=== PATIENT | male | born 1935 | race Caucasian/White ===

== ENCOUNTER 2017-01-07 19:15 | Emergency (ER) | payer MEDICARE, BC ==
[2017-01-07 18:16] LABS: BASOPHILS 0.6 %; BASOPHILS ABSOLUTE 0.05 10/3/uL (0.0-0.16); EOSINOPHILS 7.6 %; HEMATOCRIT 42.9 % (40.0-51.0); HEMOGLOBIN 15.3 g/dL (13.6-17.8); IMMATURE GRANULOCYTES 0.5 %; IMMATURE GRANULOCYTES ABSOLUTE 0.04 10/3/uL (0.0-0.11); LYMPHOCYTES ABSOLUTE 1.58 10/3/uL (0.67-4.30); MANUAL DIFF NO %; MEAN CORPUS HGB CONC 35.7 g/dL (32.0-36.0); MEAN CORPUSCULAR HEMOGLOB 30.8 pg (26.0-34.0); MEAN CORPUSCULAR VOLUME 86.5 fL (80-100); MEAN PLATELET VOLUME 8.8 fL (9.2-13.0); MONOCYTES 10.4 %; MONOCYTES ABSOLUTE 0.82 10/3/uL (0.21-1.20); NEUTROPHILS 60.9 %; NEUTROPHILS ABSOLUTE 4.81 10/3/uL (2.02-8.40); PLATELET COUNT 256 10/3/uL (150-400); RBC DISTRIBUTION WIDTH 14.8 % (12.0-16.0); RED CELL COUNT 4.96 10/6/uL (4.7-6.1); WHITE BLOOD CELLS 7.9 10/3/uL (4.5-10.5)
[2017-01-07 18:31] LABS: ALBUMIN 3.9 G/DL (3.5-5.0); CALCIUM, SERUM 8.7 MG/DL (8.5-10.4); CHLORIDE, SERUM 94 MMOL/L (96-112); CO2 (CARBON DIOXIDE) 25 MMOL/L (24-34); CREATININE 0.95 MG/DL (0.70-1.30); GFR AFRICAN AMERICAN 86 ML/MIN (>=60); GFR NON AFRICAN AMERICAN 74 ML/MIN (>=60); POTASSIUM, SERUM 3.9 MMOL/L (3.5-5.3); SGOT(AST) 16 U/L (5-40); SGPT(ALT) 20 U/L (5-65); SODIUM, SERUM 129 MMOL/L (135-148); TOTAL PROTEIN 7.6 G/DL (6.0-8.5)
[2017-01-07 18:32] LABS: A/G RATIO 1.1 (0.7-1.9); ALKALINE PHOSPHATASE 67 U/L (45-117); BUN (BLOOD UREA NITROGEN) 10 MG/DL (6-23); GLOBULIN 3.7 G/DL (2.5-4.1); GLUCOSE, SERUM 101 MG/DL (60-99)
[~2017-01-07 19:15] MED LIST: ACCUNEB INH; ADVAIR100 INH; ALLEGRA180 PO; ALTACE10 MG PO; ASA5GR PO; DYAZIDE1 CAP PO; FISH OIL1200 MG PO; KENALOG-1010 MG/ML IJ; LEVOTHYROXIN25 MCG; LEVOTHYROXIN50 MCG PO; LEVSINTAB PO; LOP50 PO; MAX25 PO; MOBIC7.5 PO; MULTIVITAMI1 PO; NORV5 PO; POTASSIUM95 MG PO; PROSCAR5 PO; SAW PALMETTO PO; VITAMIN B-121000 MC1 SL; [UNRECOGNIZED DRUG - REMARK]
== END 2017-01-07 20:43 | disposition home or self-care (01) ==
LOC: ER 19:15
PROVIDERS: Emergency Medicine
DX: J45.901 Unspecified asthma with (acute) exacerbation (principal); I10 Essential (primary) hypertension; Z85.21 Personal history of malignant neoplasm of larynx; Z79.82 Long term (current) use of aspirin; Z79.899 Other long term (current) drug therapy
CPT/HCPCS: 71020; 80053; 85025; 93005; 94640; 96374; 99285; A9270-GY; J2930

== ENCOUNTER 2017-01-15 17:19 | Emergency (ER) | payer MEDICARE, BC ==
[2017-01-15 17:59] LABS: BASOPHILS 0.5 %; BASOPHILS ABSOLUTE 0.05 10/3/uL (0.0-0.16); EOSINOPHILS 8.7 %; EOSINOPHILS ABSOLUTE 0.86 10/3/uL (0.0-0.53); ER CBC TAT 0 Hrs 10 Mins; HEMOGLOBIN 15.6 g/dL (13.6-17.8); IMMATURE GRANULOCYTES 1.7 %; IMMATURE GRANULOCYTES ABSOLUTE 0.17 10/3/uL (0.0-0.11); LYMPHOCYTES 20.1 %; MEAN CORPUS HGB CONC 34.7 g/dL (32.0-36.0); MEAN CORPUSCULAR HEMOGLOB 30.6 pg (26.0-34.0); MEAN CORPUSCULAR VOLUME 88.4 fL (80-100); MEAN PLATELET VOLUME 8.7 fL (9.2-13.0); MONOCYTES ABSOLUTE 1.09 10/3/uL (0.21-1.20); NEUTROPHILS ABSOLUTE 5.77 10/3/uL (2.02-8.40); PLATELET COUNT 264 10/3/uL (150-400); RED CELL COUNT 5.09 10/6/uL (4.7-6.1); WHITE BLOOD CELLS 9.9 10/3/uL (4.5-10.5)
[2017-01-15 18:00] LABS: MANUAL DIFF NO %
[2017-01-15 18:07] LABS: INTERNATIONAL NORMAL RATI 1.1 UNITS (-); PARTIAL THROMBO TIME 30.4 SEC (22.5-37.2); PROTIME (NOT ORD) 13.8 SEC (12.0-14.5)
[2017-01-15 18:16] LABS: CALCIUM, SERUM 8.8 MG/DL (8.5-10.4); CHEST PAIN PROFILE TAT 0 Hrs 27 Mins; CHLORIDE, SERUM 95 MMOL/L (96-112); GFR AFRICAN AMERICAN 65 ML/MIN (>=60); GFR NON AFRICAN AMERICAN 56 ML/MIN (>=60); GLUCOSE, SERUM 101 MG/DL (60-99); POTASSIUM, SERUM 4.1 MMOL/L (3.5-5.3); SODIUM, SERUM 131 MMOL/L (135-148); TROPONIN I <0.02 NG/ML (<0.05)
[2017-01-15 18:18] LABS: BUN (BLOOD UREA NITROGEN) 16 MG/DL (6-23); CO2 (CARBON DIOXIDE) 32 MMOL/L (24-34)
== END 2017-01-16 01:08 | disposition home or self-care (01) ==
LOC: ER 17:19
PROVIDERS: Emergency Medicine
DX: J45.901 Unspecified asthma with (acute) exacerbation (principal); I10 Essential (primary) hypertension; Z85.89 Personal history of malignant neoplasm of other organs and systems; Z79.82 Long term (current) use of aspirin; Z79.899 Other long term (current) drug therapy
CPT/HCPCS: 71020; 80048; 83735; 84484; 85025; 85610; 85730; 94640; 99285

== ENCOUNTER 2017-03-19 16:44 | Inpatient (IN) | payer MEDICARE, BC ==
--- NOTE | ~2017-03-19 | DS ---
Discharge Summary [address] [place]. [address] NAME: EMILEE CARRION : 34 STATUS : DIS IN PAT#: [id number] AGE: 81 ADM/REG DATE : 03/20/17 MR#: [id number] REPORT SERV DATE: 03/23/17 DICTATED BY: JR. RODRIGUEZ WILLIAM JOHN DATE: 03/22/17 REPORT STATUS : Draft TRANSCRIBED BY: MODConnor DATE: 03/22/17 ADMISSION DATE: 03/20/2017 DISCHARGE DATE: 03/22/2017 DISCHARGE DIAGNOSES: Include: 1. Severe recurrent asthma with exacerbation. 2. Acute hypoxic respiratory failure. 3. Pulmonary nodules of the right upper lobe with necrotic nodes. 4. Hyponatremia. 5. Essential hypertension. 6. Irritable bowel syndrome with predominant diarrhea. 7. History of vocal cord carcinoma in situ, status post resection. OPERATIONS, PROCEDURES, AND TREATMENTS: 1. Include blood cultures x2 done 03/19 they are sterile. 2. Chest x-ray done 03/19 showed right upper lobe nodular density. 3. CT of the chest done 03/19 showed:. a. Motion artifact. b. Probable 14 mm pleural-based fibrosis or atelectasis in the anterior right upper lobe. There was indeterminate noncalcified pulmonary nodule in the right lower lobe measuring 4 and 4.5 cm respectively. c. 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 There was mildly enlarged left subfrontal lymph node measuring 13 mm of uncertain clinical significance. 4. Venous Doppler ultrasound done 03/20, which showed no evidence of deep vein thrombosis. 5. Portable chest x-ray done 03/21, which showed developing right perihilar and left basilar airspace consolidation concerning for contusion with no pneumothorax noted. 6. Endoscopic bronchial ultrasound with biopsy done by Dr. Arden Jacobs on 03/21 with findings of a normal oropharynx, larynx. The right vocal cord was midline without evidence of abnormality. Subglottic space was normal. Trachea was normal. Stacey was sharp. The bronchial mucosa and anatomy was normal. There was no endobronchial lesions and no secretions. There was a transbronchial aspiration of lymph node at level 11L with four passes submitted for cytology. There were six passes for cytology of lymph nodes at level 7, four passes of lymph node 11R submitted for cytology with bronchoalveolar lavage of the right upper lobe sent for cell count cytology, bacteria culture, viral smears and culture, fungal culture, AFB stains. Preliminary cytology was "necrotic node.". DISCHARGE MEDICATIONS: Include: 1. Norvasc 5 mg orally daily. 2. Finasteride 5 mg orally daily. 3. Synthroid 50 mcg orally daily. 4. Vashti 180 mg orally daily. 5. Mentmore-3 fatty acid 1200 mg orally daily. 6. Ramipril 10 mg orally daily. 7. Albuterol 2 puffs every four hours as needed. Discharge Summary [address] [place]. [address] NAME: EMILEE CARRION : 34 STATUS : DIS IN PAT#: [id number] AGE: 81 ADM/REG DATE : 03/20/17 MR#: [id number] REPORT SERV DATE: 03/23/17 DICTATED BY: JR. RODRIGUEZ WILLIAM JOHN DATE: 03/22/17 REPORT STATUS : Draft TRANSCRIBED BY: MACIEJ DATE: 03/22/17 8. Multivitamin tablet orally daily. 9. Vitamin B12 one tablet orally daily. 10.Systane 1 drop in each eye daily. 11.Diltiazem 240 mg orally daily. 12.Prednisone 40 mg orally daily for four days, then 30 for three days, then 20 for three days, then 10 for three days, then none. 13.Symbicort 160/4.5 two puffs twice a day. 14.Albuterol high-flow aerosol two puffs every 4 to 6 hours as needed. HOSPITAL COURSE: The patient is an 81-year-old male presented to the emergency room with complaint of shortness of breath and cough. The patient has a long history of uncontrolled asthma which was "as bad as he could ever remember." He had undergone three separate treatments with steroid. Each time the steroid completes, he has flares. He recently was started on a Z-Geronimo and did not improve. He therefore presented to the emergency room. Initial exam showed temperature 98.6, heart rate 122, blood pressure 200/92, respiratory rate 22, saturation 97% on 2 L. In general, the patient was ill-appearing, and there was evidence of distress secondary to shortness of breath with prominent audible wheezing. His lung exam showed inspiratory and expiratory wheezes. Scattered rhonchi with diminished breath sounds at the base of both lungs, possibly some crackles. Initial laboratory was significant for a white count of 10.1, BUN 11, creatinine 1.04. Arterial blood gas showed a pH of 7.38, pCO2 of 41, PO2 of 71 on 3 L nasal cannula. Chest x-ray as detailed above. The patient was admitted to the hospital for asthma exacerbation. He was placed on IV steroids, DuoNebs, and empiric doxycycline. The patient was subsequently seen in consultation by Pulmonology and after discussion with Radiology, the recommendation was for an endobronchial ultrasound with lymph node aspiration. This was performed on 03/[address] Jacobs. Apparently, there was only necrotic tissue on the rapid preliminary cytology. Final pathology and cytology are pending. The patient's steroids were switched to oral steroids on 03/21, and his wheezing dramatically improved. The patient does have somewhat low sodium, it was in the 128 to 130 range and stable. The patient was weaned off his oxygen and was felt to be stable for discharge home today 03/22/2017. At discharge, his sodium is 129. He is on room air and will follow up with Dr. Savage of Pulmonary Medicine. We will have followup pulmonary function test and will have a long steroid taper. He will also follow up with Dr. Michael Hayes. He was on a 1.5 L fluid restriction. He will need a basic metabolic profile in one week. For discharge exam and laboratory, please see daily progress note. FOLLOWUP ISSUES: 1. Follow up pathology and cytology with Dr. Savage. 2. Follow up pulmonary function testing. 3. Followup CT is per Dr. Jacobs's order. 4. Follow up with Dr. Hayes with sodium check. DISCHARGE DIET: 1.5 L fluid restriction. ACTIVITY: As tolerated. Discharge Summary [address] [address] NAME: EMILEE CARRION : 34 STATUS : DIS IN PAT#: [id number] AGE: 81 ADM/REG DATE : 03/20/17 MR#: [id number] REPORT SERV DATE: 03/23/17 DICTATED BY: JR. RODRIGUEZ WILLIAM JOHN DATE: 03/22/17 REPORT STATUS : Draft TRANSCRIBED BY: MACIEJ DATE: 03/22/17 This discharge took 35 minutes for patient encounter, coordination of care, and documentation. DICTATED BY: Ted Rodriguez Jr, MD WJF/MODL Ted Rodriguez Jr, MD / [id number] CC: Ted Rodriguez Jr, MD Patrick Rhyne, M.D.
--- NOTE | ~2017-03-19 | CN ---
Consultation Report [facility] [address] [place]. [address] NAME: DEVYN CARRION : 34 STATUS : ADM IN PAT#: [id number] AGE: 81 ADM/REG DATE : 03/20/17 MR#: [id number] REPORT SERV DATE: 03/20/17 DICTATED BY: YANIV MONTANA DATE: 03/20/17 REPORT STATUS : Draft TRANSCRIBED BY: MODL DATE: 03/20/17 DATE OF CONSULTATION: Dear Dr. Holm and Yap: Thank you for requesting my opinion regarding evaluation and management of Mr. Devyn Carrion's mediastinal lymphadenopathy, small pulmonary lung nodules, and asthma. Mr. Devyn Carrion is an extremely pleasant 81-year-old gentleman with a significant past medical history of asthma, vocal cord cancer in 2006 status post surgery by Dr. Nam Hays currently retired, and radiation therapy by Dr. Tylor hood treatments, hypertension, gastritis, irritable bowel syndrome, and BPH who presents to [facility] after 3 prior episodes of asthma exacerbations. The patient states that he has been treated with multiple courses of steroid treatment, steroid packs, and a Z-Geronimo. Each time he had near complete resolution of his pulmonary symptoms, and as he was weaned, he developed recrudescent symptoms of shortness of breath, dyspnea on exertion, prominent wheeze, and chest tightness. He describes his symptoms on admission as 9-10/10 on a scale of 1 to 10. Now currently near his baseline within 24 hours. The patient also had developed associated symptoms of mild orthopnea and a nonproductive cough. He states that he has lost approximately 10 pounds intentionally, but he denies any unintentional weight loss. His symptoms are well localized to the chest, nonradiating with no significant alleviating or exacerbating factors. REVIEW OF SYSTEMS: A detailed 14-point review of systems was completed. Pertinent positives and negatives are listed above. PAST MEDICAL HISTORY: 1. Asthma. 2. Hyponatremia. 3. Vocal cord cancer in 2006 status post radiation therapy by Dr. Snider x2Reynaldo treatments and resection by Dr. 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 4. Hypertension. 5. Gastritis. 6. Benign prostatic hypertrophy. 7. Irritable bowel syndrome. 8. Hypothyroidism. PAST SURGICAL HISTORY: 1. Right shoulder surgery. 2. Right knee surgery. 3. Hernia repair. 4. Vocal cord cancer removal as above. 5. Left foot surgery in 1991. Consultation Report [facility] [facility] [place]. [address] NAME: DEVYN CARRION : 34 STATUS : ADM IN PAT#: [id number] AGE: 81 ADM/REG DATE : 03/20/17 MR#: [id number] REPORT SERV DATE: 03/20/17 DICTATED BY: YANIV MONTANA DATE: 03/20/17 REPORT STATUS : Draft TRANSCRIBED BY: MACIEJ DATE: 03/20/17 ALLERGIES: NO KNOWN DRUG ALLERGIES. HOME MEDICATIONS: Reviewed and located in the paper chart. The patient had recently completed a Z-Geronimo on the , is currently on Symbicort and albuterol inhaler at home. He has is oscillated between the higher dose 160 and 80 versions as he has been stepped down. PHYSICAL EXAMINATION: VITAL SIGNS: Reviewed and located in the electronic medical record. The patient is afebrile, T current of 97.4, pulse of 106, respiratory rate of 18, 3 L, 99%. Blood pressure 121/63, 5 foot 11, 178 pounds, BMI of 24.9. GENERAL: No acute distress. Raspy voice, which is chronic in nature, and slightly hypophonic, but clear. Able to communicate in full paragraphs at a time. HEENT: Normocephalic and atraumatic. Pupils are equal, round, and reactive to light and accommodation. Posterior oropharynx appears to be clear. No obvious signs of radiation injury. The patient has limited rotation to the right, but near complete range of motion. Good extension and flexion. CARDIOVASCULAR: Regular rate and rhythm. S1 and S2 present. LUNGS: Coarse bilateral breath sounds. Bilateral wheezes, rhonchorous. ABDOMEN: Nontender. Nondistended. Soft. Positive bowel sounds. EXTREMITIES: No clubbing, cyanosis, or edema. 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 PSYCHIATRIC: Alert and oriented x3. Appropriate mood and affect. Appropriate insight and judgment. EXTREMITIES: No clubbing, cyanosis, or edema. NEUROLOGIC: 5/5 strength in upper and lower extremities. Cranial nerves 2 through 12 intact. Gait not tested. DTRs not performed. LABORATORY DATA: White count of 5, hemoglobin of 13, platelet count of 307, INR 1.2, PTT of 36.7, procalcitonin negative. Sodium 128, creatinine of 0.93, ABG of 7.38, PaCO2 of 41, PaO2 of 71 while on 32% FiO2. IMAGING: Chest CT on 03/19/2017 was personally reviewed by me and I agree with the following interpretation: 1. Probable focal 14 mm pleural-based fibrosis or atelectasis in the right upper lobe. 2. Indeterminate noncalcified pulmonary nodules in the right lower lobe, measuring 4 mm and 4.5 mm, Lung-RADS category 2, benign appearance. Recommendations for followup low- dose noncontrast CT scan in 1 year. 3. Mild fusiform aneurysmal changes associated with the ascending thoracic aorta measuring up to 3.6 cm in diameter. 4. Moderate dense coronary artery calcifications. 5. Mildly enlarged left subcarinal lymph node measuring 13 mm of unclear clinical significance. ASSESSMENT AND PLAN: Mr. Devyn Carrion is an extremely pleasant 81-year-old gentleman with a significant past medical history of asthma recently diagnosed this three months ago, vocal Consultation Report [address] [address] NAME: DEVYN CARRION : 34 STATUS : ADM IN PAT#: [id number] AGE: 81 ADM/REG DATE : 03/20/17 MR#: [id number] REPORT SERV DATE: 03/20/17 DICTATED BY: YANIV MONTANA DATE: 03/20/17 REPORT STATUS : Draft TRANSCRIBED BY: MODL DATE: 03/20/17 cord carcinoma status post resection by Dr. Nam Hays and radiation treatment by Dr. Ruiz Snider who presents with worsening shortness of breath, dyspnea on exertion, chest tightness, and prominent wheezes. The clinical and radiographic presentation is most consistent with an asthma exacerbation. The patient underwent a CT scan of the chest that demonstrated 2 small subcentimeter pulmonary nodules located in the right lower lobe with a Lung-RADS score of 2, which will require long-term followup including a CT of the chest in year. The patient also was found to have mediastinal lymphadenopathy, most prominent on the left aspect of the subcarinal nodes. The clinical significance is unclear but could represent metastatic disease. Although unlikely given the remote history of his vocal cord carcinoma or other alternative metastatic disease, lymphoma, or just reactive adenopathy. 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 He states that he would like to find out what the mediastinal lymphadenopathy is related to and agreed to outpatient followup regarding his pulmonary nodules. We discussed in detail options for biopsy of the mediastinal lymphadenopathy. At the same time, we could perform a bronchoscopy with BAL of the right upper lobe in the region of the small fibrotic or atelectatic portion of the lung. The patient is aware that EBUS bronchoscopy is associated with potential life-threatening risks, including lung collapse, respiratory failure, and even . RECOMMENDATIONS: A summary of my recommendations are as follows: 1. Continue current doses of steroids. 2. Bronchodilator therapy. 3. Continue home bronchodilator therapy as outpatient. 4. The patient will require outpatient followup with a repeat short interval scan instead of one year recommended for the pulmonary nodule, recommend given the prominent mediastinal lymphadenopathy that he undergo a repeat CT scan in 4 to 6 weeks. 5. Outpatient pulmonary function test. 6. The patient has requested Dr. Savage given his outstanding reputation for followup. We will see if he has availability. 7. Proceed with EBUS bronchoscopy tomorrow. 8. NPO after midnight. Thank you for allowing me to participate in Mr. Carrion's care. ALEJANDRO/MACIEJ Yaniv Montana M.D. / [id number]
--- NOTE | ~2017-03-19 | EGD ---
EGD REPORT [facility] [address] [address] NAME: DEVYN CARRION : 34 STATUS : ADM IN PAT#: [id number] AGE: 81 ADM/REG DATE : 03/20/17 MR#: [id number] REPORT SERV DATE: 03/21/17 DICTATED BY: HEMALATHA MONTANA DATE: 03/21/17 REPORT STATUS : Draft TRANSCRIBED BY: [facility]JANE [facility] DATE: 03/21/17 Pulmonology Patient Name: Devyn Carrion Procedure Date: 03/21/2017 9:55 AM Date of : 1935 Attending MD: PAOLO MONTANA MD Procedure Date No Time: 03/21/2017 Procedure: EBUS Indications: Mediastinal adenopathy, history of vocal cord CIS s/p Sx and XRT Providers: PAOLO MONTANA MD Referring MD: NICK RIVERA MD Medicines: Lidocaine 2% 20 mL Complications: No immediate complications Procedure: Pre-Anesthesia Assessment: - ASA Grade Assessment: III - A patient with severe systemic disease. - A History and Physical has been performed. Patient meds and allergies have been reviewed. The risks and benefits of the procedure and the sedation options and risks were discussed with the patient. All questions were answered and informed consent was obtained. Patient identification and proposed procedure were verified prior to the procedure by the physician and the nurse in the pre-procedure area in the procedure room. Mental Status Examination: alert and oriented. Airway Examination: normal oropharyngeal airway. Respiratory Examination: poor air movement. CV Examination: normal and RRR, no murmurs, no S3 or S4. ASA Grade Assessment: IV - A patient with severe systemic disease that is a constant threat to life. After reviewing the risks and benefits, the patient was deemed in satisfactory condition to undergo the procedure. The anesthesia plan was to use general anesthesia. Immediately prior to administration of medications, the patient was re-assessed for adequacy to receive sedatives. The heart rate, respiratory rate, oxygen saturations, blood pressure, adequacy of pulmonary ventilation, and response to care were monitored throughout the procedure. The physical status of the patient was re-assessed after the procedure. After obtaining informed consent, the BF [id number] was introduced through the mouth, via laryngeal mask airway and advanced to the tracheobronchial tree. the Bronchoscope was introduced through the mouth, via laryngeal mask airway and advanced to the EGD REPORT [address] [place]. [address] NAME: DEVYN CARRION : 34 STATUS : ADM IN [facility]#: [id number] AGE: 81 ADM/REG DATE : 03/20/17 MR#: [id number] REPORT SERV DATE: 03/21/17 DICTATED BY: HEMALATHA MONTANA DATE: 03/21/17 REPORT STATUS : Draft TRANSCRIBED BY: [facility]JANE [facility] DATE: 03/21/17 tracheobronchial tree. The procedure was accomplished without difficulty. The patient tolerated the procedure well. Findings: The oropharynx appears normal. The larynx appears normal. The right vocal cord was positioned midline with no evidence of abnormality. The subglottic space is normal. The trachea is of normal caliber. The ysabel is sharp. The tracheobronchial tree was examined to at least the first subsegmental level. Bronchial mucosa and anatomy are normal; there are no endobronchial lesions, and no secretions. EBUS TBNA of lymph node level 11L x 4 passes for cytology EBUS TBNA of lymph node level 7 x 6 passes for cytology EBUS TBNA of lymph node level 11R x 4 passes for cytology Bronchoalveolar lavage was performed in the right upper lobe of the lung and sent for cell count, cytology, bacterial culture, viral smears \\T\\ culture, and fungal and AFB analysis. 120 mL of fluid were instilled. 20 mL were returned. The return was blood-tinged and cellular. Impression: Rapid On-Site Evaluation (SILVANO): Preliminary cytology is "NECROTIC NODE" (final results are pending). Recommendation: - Await test results. - Chest X-ray post-procedure. Attending Participation: I personally performed the entire procedure. PAOLO MONTANA MD 03/21/2017 10:48 AM This report has been signed electronically. Number of Addenda: 0 Note Initiated On: 03/21/2017 9:55 AM [address] [address]
--- NOTE | ~2017-03-19 | HP ---
History And Physical [address] [place]. [address] NAME: EMILEE CARRION : 33 STATUS : ADM Nik PAT#: [id number] AGE: 81 ADM/REG DATE : 03/19/17 MR#: [id number] REPORT SERV DATE: 03/19/17 DICTATED BY: OLMAN ROTH DATE: 03/19/17 REPORT STATUS : Draft TRANSCRIBED BY: MODL DATE: 03/19/17 DATE OF ADMISSION: 03/19/2017 CHIEF COMPLAINT: An 81-year-old male presenting with recurrent shortness of breath and cough. HISTORY OF PRESENT ILLNESS: The patient's history was obtained through careful interview with the patient, , and daughter, coupled with review of [facility] and [facility]. The patient since December 2016 has had fairly continuous problem with uncontrolled asthma although he has had intermittent asthma for years this spring and early summer is bad as he can ever remember. He has undergone three separate treatments with steroids and each time he believes that prednisone actually helps his symptoms considerably but as soon as he comes off the prednisone taper, his asthma seems to act up once again. Most recently, he was on a Z-Geronimo and did not obtain much relief with that. But over these last several days, he has had breathing problem "is worse as I ever had." He describes a prominent wheeze, dyspnea on exertion. He has had some slight foot edema. This afternoon for the first time, he suffered orthopnea where he could not lay down because of his exacerbated shortness of breath. He has a rare nonproductive cough, but it has persisted over these last few months. He has had a very poor appetite, but no nausea or vomiting. He feels a soreness in his chest related to coughing and work of breathing about 3/10 to 4/10 severity. He has occasional infrequent headaches over the last few months, 4/10 severity associated with sinus drainage and sinus fullness often. He has lost about 10 pounds in the last three months. He has chronic daily diarrhea from "irritable bowel syndrome" one or two bowel movements a day. REVIEW OF SYSTEMS: Otherwise, a 14-point review of systems was obtained and was negative. PAST MEDICAL HISTORY: 1. Asthma. 2. Hyponatremia with baseline sodium 127 to 135, chronically. History And Physical [address] [place]. [address] NAME: EMILEE CARRION : 33 STATUS : ADM Nik PAT#: [id number] AGE: 81 ADM/REG DATE : 03/19/17 MR#: [id number] REPORT SERV DATE: 03/19/17 DICTATED BY: OLMAN ROTH DATE: 03/19/17 REPORT STATUS : Draft TRANSCRIBED BY: MODL DATE: 03/19/17 3. 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 When he had vocal cord cancer, he had lost a total of 40 pounds and now has maintained a relatively stable weight until the last three months. 4. Hypertension. 5. Gastritis, seen by Dr. Yossi Hassan. 6. Benign prostatic hypertrophy. 7. Irritable bowel syndrome. 8. Hypothyroidism. 9. No cardiac disease. PAST SURGICAL HISTORY: 1. Right shoulder surgery. 2. Right knee surgery. 3. Hernia repair. 4. Vocal cord cancer removal. 5. Left foot surgery in 1991. ALLERGIES: NO KNOWN DRUG ALLERGIES. SOCIAL HISTORY: No tobacco abuse. No alcohol abuse. He has been to his for 55 years. Lives in [place], [place], has three daughters, three grandchildren. 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 FAMILY HISTORY: Heart disease. CURRENT MEDICATIONS: Include vitamin B12, multivitamin, Altace 10 mg p.o. daily, eye drops, omega-3 fatty acids, metoprolol 50 mg p.o. b.i.d., albuterol inhaler, Norvasc 5 mg p.o. daily, Z-Geronimo just completed on March 18, Symbicort inhaled twice a day, Vashti 180 mg p.o. daily, Proscar 5 mg p.o. daily, levothyroxine 50 mcg p.o. daily. PHYSICAL EXAMINATION: VITAL SIGNS: Temperature 98.6, pulse 122, blood pressure 200/92, respiratory rate 28, O2 saturation 97% on 2 L nasal cannula. GENERAL: An ill-appearing male, in evidence of distress secondary to shortness of breath with prominent wheeze. HEENT: Pupils are equal, round, and reactive to light. No conjunctival pallor. No scleral icterus. Nares are patent. Oropharynx is clear of obstruction. Moist mucous membranes. NECK: Trachea midline. No thyromegaly. LYMPH: No cervical lymphadenopathy. No supraclavicular lymphadenopathy. RESPIRATORY: The patient has inspiratory and expiratory wheezes that predominate exam, scattered rhonchi are noted. He has diminished breath sounds at the base of lungs, maybe some crackles there as well but I do not appreciate focal egophony. No dullness to percussion to suggest effusions by my exam. The patient has a quite labored respiratory effort, heaving with his abdomen to help breathe. CARDIOVASCULAR: Tachycardic, regular rhythm. No murmurs, rubs, or gallops. The patient does have edema around his ankles left greater than the right. ABDOMEN: Soft, nontender, nondistended. Normal bowel sounds auscultated throughout. No History And Physical [address] [address] NAME: EMILEE CARRION : 33 STATUS : ADM Nik PAT#: [id number] AGE: 81 ADM/REG DATE : 03/19/17 MR#: [id number] REPORT SERV DATE: 03/19/17 DICTATED BY: OLMAN ROTH DATE: 03/19/17 REPORT STATUS : Draft TRANSCRIBED BY: MACIEJ DATE: 03/19/17 hepatosplenomegaly. DERMATOLOGICAL: Warm and dry extremities. No pallor, no cyanosis. PSYCHIATRIC: Normal affect. Good mood. Alert and oriented x3. LABORATORY DATA: White blood cell count 10.1, hemoglobin 15, hematocrit 42, platelets 342. Sodium 130, potassium 5.1, chloride 96, bicarb 28, BUN 11, creatinine 1.04, glucose 144, lactic acid 1.7. Liver enzymes within normal limits. ABG demonstrates pH of 7.38, a PaCO2 of 41, a PaO2 of 71, a bicarb of 24 on 3 L nasal cannula. STUDIES: 1. Chest x-ray by my own evaluation shows chronic right lower lung granulomas and interstitial lung disease. It seems to be increasing since comparison chest x-rays earlier this year. 2. EKG by my own evaluation shows sinus tachycardia. ASSESSMENT AND PLAN: 1. Severe recurrent asthma exacerbation, recurrent episodes since December 2016. The patient has never been a smoker. Place on IV Solu-Medrol, Duo nebulizers, doxycycline. Obtain a Pulmonary consult. Family requesting Dr. Savage. 2. Abnormal chest x-ray. Check a CT scan of the chest with contrast, rule out interstitial lung disease or other lung process ?.. 3. Hyponatremia, chronic stable baseline sodium 127 to 135. 4. Hypertension: I would like to begin changing the patient's beta-bryan to a calcium channel bryan. Use p.r.n. medications. KPL/MODL Olman Roth M.D. / [id number] CC: Anjel Roth M.D. David C Chaffin Jr., M.D.
[2017-03-19 17:27] LABS: BASOPHILS 0.8 %; BASOPHILS ABSOLUTE 0.08 10/3/uL (0.0-0.16); EOSINOPHILS 12.4 %; EOSINOPHILS ABSOLUTE 1.26 10/3/uL (0.0-0.53); HEMATOCRIT 42.5 % (40.0-51.0); HEMOGLOBIN 14.8 g/dL (13.6-17.8); IMMATURE GRANULOCYTES 1.1 %; IMMATURE GRANULOCYTES ABSOLUTE 0.11 10/3/uL (0.0-0.11); LYMPHOCYTES 26.9 %; LYMPHOCYTES ABSOLUTE 2.73 10/3/uL (0.67-4.30); MEAN CORPUS HGB CONC 34.8 g/dL (32.0-36.0); MEAN CORPUSCULAR HEMOGLOB 30.1 pg (26.0-34.0); MEAN CORPUSCULAR VOLUME 86.6 fL (80-100); MEAN PLATELET VOLUME 8.4 fL (9.2-13.0); MONOCYTES 9.2 %; MONOCYTES ABSOLUTE 0.93 10/3/uL (0.21-1.20); NEUTROPHILS 49.6 %; NEUTROPHILS ABSOLUTE 5.02 10/3/uL (2.02-8.40); PLATELET COUNT 342 10/3/uL (150-400); RBC DISTRIBUTION WIDTH 14.8 % (12.0-16.0); RED CELL COUNT 4.91 10/6/uL (4.7-6.1); WHITE BLOOD CELLS 10.1 10/3/uL (4.5-10.5)
[2017-03-19 17:31] LABS: MANUAL DIFF NO %
[2017-03-19 17:38] LABS: BE (BASE EXCESS) -0.9 MEQ/L (0 +/- 2.5); CARBOXYHEMOGLOBIN 1.2 % (0-3); HCO3 (ACTUAL BICARBONATE) 24.1 MEQ/L (23-27); INSTRUMENT SERIAL # 8087; METHEMOGLOBIN 0.4 % (0-3); PCO2 (CO2 TENSION) 41 MMHG (35-45); PO2 (O2 TENSION) 71 MMHG (79-93); pH 7.38 (7.37-7.43)
[2017-03-19 17:39] LABS: ALLENS TEST Pos; DEVICE NC; HEMOBLOGIN CONTENT 15.1 G/DL (14-18); O2 CONTENT 19.6 VOL% (18-24); OPERATOR ID 35859; SAMPLE Arterial
[2017-03-19 17:46] LABS: ALBUMIN 3.6 G/DL (3.5-5.0); ALKALINE PHOSPHATASE 65 U/L (45-117); CALCIUM, SERUM 9.2 MG/DL (8.5-10.4); CHLORIDE, SERUM 96 MMOL/L (96-112); CO2 (CARBON DIOXIDE) 28 MMOL/L (24-34); CREATININE 1.04 MG/DL (0.70-1.30); GFR AFRICAN AMERICAN 77 ML/MIN (>=60); GFR NON AFRICAN AMERICAN 67 ML/MIN (>=60); SGPT(ALT) 24 U/L (5-65); SODIUM, SERUM 130 MMOL/L (135-148); TOTAL BILIRUBIN 0.8 MG/DL (0-1.2)
[2017-03-19 17:50] LABS: A/G RATIO 0.8 (0.7-1.9); BUN (BLOOD UREA NITROGEN) 11 MG/DL (6-23); GLOBULIN 4.4 G/DL (2.5-4.1); GLUCOSE, SERUM 144 MG/DL (60-99); POTASSIUM, SERUM 5.1 MMOL/L (3.5-5.3); SGOT(AST) 53 U/L (5-40)
[2017-03-19] MEDS ORDERED: PROAIRRESP INH (19:21)
[2017-03-19] MEDS ORDERED: Z-PAK PO (19:21)
[2017-03-19] MEDS ORDERED: NORV5 PO (19:21)
[2017-03-19] MEDS ORDERED: MULTIVITAMIN PO (19:22)
[2017-03-19] MEDS ORDERED: LEVOTHYROXIN50 MCG PO (19:22)
[2017-03-19] MEDS ORDERED: PROSCAR5 PO (19:22)
[2017-03-19] MEDS ORDERED: SYMBICORT 160/41 INH INH (19:23)
[2017-03-19] MEDS ORDERED: VITAMIN B-12 PO (19:23)
[2017-03-19] MEDS ORDERED: SYSTANE OPH (19:23)
[2017-03-19] MEDS ORDERED: LOP50 PO (19:24)
[2017-03-19] MEDS ORDERED: ALTACE10 MG PO (19:24)
[2017-03-19] MEDS ORDERED: ALBUTEROL5 INH (19:24)
[2017-03-19] MEDS ORDERED: FISH OIL1200 MG PO (19:25)
[2017-03-19] MEDS ORDERED: ALLEGRA180 PO (19:25)
[2017-03-20 06:52] LABS: BASOPHILS 0.2 %; BASOPHILS ABSOLUTE 0.01 10/3/uL (0.0-0.16); EOSINOPHILS 0.2 %; EOSINOPHILS ABSOLUTE 0.01 10/3/uL (0.0-0.53); HEMATOCRIT 40.4 % (40.0-51.0); HEMOGLOBIN 13.8 g/dL (13.6-17.8); IMMATURE GRANULOCYTES 0.6 %; IMMATURE GRANULOCYTES ABSOLUTE 0.03 10/3/uL (0.0-0.11); LYMPHOCYTES 13.3 %; LYMPHOCYTES ABSOLUTE 0.71 10/3/uL (0.67-4.30); MEAN CORPUS HGB CONC 34.2 g/dL (32.0-36.0); MEAN CORPUSCULAR HEMOGLOB 29.4 pg (26.0-34.0); MEAN PLATELET VOLUME 8.2 fL (9.2-13.0); MONOCYTES 1.5 %; MONOCYTES ABSOLUTE 0.08 10/3/uL (0.21-1.20); NEUTROPHILS 84.2 %; NEUTROPHILS ABSOLUTE 4.49 10/3/uL (2.02-8.40); PLATELET COUNT 307 10/3/uL (150-400); RBC DISTRIBUTION WIDTH 14.4 % (12.0-16.0)
[2017-03-20 06:54] LABS: MANUAL DIFF NO %; WHITE BLOOD CELLS 5.3 10/3/uL (4.5-10.5)
[2017-03-20 06:58] LABS: INTERNATIONAL NORMAL RATI 1.2 UNITS (-); PROTIME (NOT ORD) 14.9 SEC (12.0-14.5)
[2017-03-20 06:59] LABS: PARTIAL THROMBO TIME 36.7 SEC (22.5-37.2)
[2017-03-20 07:13] LABS: A/G RATIO 0.9 (0.7-1.9); ALBUMIN 3.2 G/DL (3.5-5.0); ALKALINE PHOSPHATASE 55 U/L (45-117); BUN (BLOOD UREA NITROGEN) 10 MG/DL (6-23); CHLORIDE, SERUM 96 MMOL/L (96-112); CREATININE 0.93 MG/DL (0.70-1.30); GFR AFRICAN AMERICAN 88 ML/MIN (>=60); GFR NON AFRICAN AMERICAN 76 ML/MIN (>=60); GLOBULIN 3.6 G/DL (2.5-4.1); SGOT(AST) 20 U/L (5-40); SGPT(ALT) 20 U/L (5-65); SODIUM, SERUM 128 MMOL/L (135-148); TOTAL BILIRUBIN 0.4 MG/DL (0-1.2); TOTAL PROTEIN 6.8 G/DL (6.0-8.5); TROPONIN I <0.02 NG/ML (<0.05)
[2017-03-20 07:14] LABS: CO2 (CARBON DIOXIDE) 22 MMOL/L (24-34); GLUCOSE, SERUM 175 MG/DL (60-99); POTASSIUM, SERUM 3.6 MMOL/L (3.5-5.3)
[2017-03-20 09:09] LABS: PROCALCITONIN <0.05 ng/mL (<0.5)
[2017-03-21 04:17] LABS: BASOPHILS 0 %; EOSINOPHILS 0 %; HEMOGLOBIN 12.6 g/dL (13.6-17.8); IMMATURE GRANULOCYTES 0.6 %; IMMATURE GRANULOCYTES ABSOLUTE 0.07 10/3/uL (0.0-0.11); LYMPHOCYTES 7.1 %; LYMPHOCYTES ABSOLUTE 0.78 10/3/uL (0.67-4.30); MEAN CORPUS HGB CONC 35.8 g/dL (32.0-36.0); MEAN CORPUSCULAR HEMOGLOB 30.2 pg (26.0-34.0); MEAN CORPUSCULAR VOLUME 84.4 fL (80-100); MEAN PLATELET VOLUME 8.3 fL (9.2-13.0); MONOCYTES 3.9 %; MONOCYTES ABSOLUTE 0.43 10/3/uL (0.21-1.20); NEUTROPHILS 88.4 %; NEUTROPHILS ABSOLUTE 9.67 10/3/uL (2.02-8.40); PLATELET COUNT 306 10/3/uL (150-400); RBC DISTRIBUTION WIDTH 14.6 % (12.0-16.0); RED CELL COUNT 4.17 10/6/uL (4.7-6.1)
[2017-03-21 04:19] LABS: HEMATOCRIT 35.2 % (40.0-51.0); MANUAL DIFF NO %
[2017-03-21 04:24] LABS: INTERNATIONAL NORMAL RATI 1.2 UNITS (-); PARTIAL THROMBO TIME 33.1 SEC (22.5-37.2); PROTIME (NOT ORD) 14.6 SEC (12.0-14.5)
[2017-03-21 04:34] LABS: CALCIUM, SERUM 9.1 MG/DL (8.5-10.4); CHLORIDE, SERUM 96 MMOL/L (96-112); CO2 (CARBON DIOXIDE) 22 MMOL/L (24-34); GFR AFRICAN AMERICAN 72 ML/MIN (>=60); GFR NON AFRICAN AMERICAN 62 ML/MIN (>=60); GLUCOSE, SERUM 154 MG/DL (60-99); POTASSIUM, SERUM 3.6 MMOL/L (3.5-5.3); SODIUM, SERUM 129 MMOL/L (135-148)
[2017-03-21 04:35] LABS: BUN (BLOOD UREA NITROGEN) 17 MG/DL (6-23)
[2017-03-21 14:24] LABS: BD FL SOURCE (NOT ORD) RUL BAL; BF TOTAL CELL CT (NOT ORD 247 /MM3; BODY FLUID RBC (NOT ORD) 1000 /MM3
[2017-03-21 14:49] LABS: BD FL LYMPH (NOT ORD) 59 %; BF BASO (NOT OF) 0 %; BF LARGE MONONUCLEAR 12 %; BODY FLUID EOS (NOT ORD) 0 %; BODY FLUID SEG (NOT ORD) 29 %
[2017-03-22] MEDS ORDERED: CARDCD240 PO (11:09)
[2017-03-22] MEDS ORDERED: P10 PO (11:10)
[2017-03-22] MEDS ORDERED: PROAIR HFA INH (11:14)
== END 2017-03-22 18:41 | disposition home or self-care (01) | DRG 166 ==
LOC: ER 16:44 → 7NO 19:09
PROVIDERS: Emergency Medicine; Hospitalist; Internal Medicine
PROC: 07B74ZX Excision of Thorax Lymphatic, Percutaneous Endoscopic Approach, Diagnostic (ICD-10-PCS; principal; 2017-03-21 10:22)
PROC: 0B948ZX Drainage of Right Upper Lobe Bronchus, Via Natural or Artificial Opening Endoscopic, Diagnostic (ICD-10-PCS; 2017-03-21 10:22)
DX: J45.901 Unspecified asthma with (acute) exacerbation (principal); J96.01 Acute respiratory failure with hypoxia; E87.1 Hypo-osmolality and hyponatremia; I10 Essential (primary) hypertension; R59.0 Localized enlarged lymph nodes; N40.0 Benign prostatic hyperplasia without lower urinary tract symptoms; K29.70 Gastritis, unspecified, without bleeding; L11.1 Transient acantholytic dermatosis [Grover]; K58.0 Irritable bowel syndrome with diarrhea; L04.8 Acute lymphadenitis of other sites; Z92.3 Personal history of irradiation; Z85.21 Personal history of malignant neoplasm of larynx
CPT/HCPCS: 36600; 71010; 71260; 80048; 80053; 82805; 83605; 83735; 84145; 84443; 84484; 85025; 85610; 85730; 87015; 87040; 87070; 87102; 87116; 87205; 87449; 88112; 88172; 88173; 88305; 89051; 93005; 93970; 94640; 96374; 99291; A9270-GY; C1725; J2370; J2920; J2930; J3010; J3475; Q9967